=== PATIENT | female | born 1960 | race Caucasian/White ===

== ENCOUNTER 2016-07-09 18:10 | Emergency (ER) | payer OTHER ==
[~2016-07-09] VITALS: Ht 154.9 cm; Wt 73.5 kg
[~2016-07-09 18:10] MED LIST: PEN-VEE K,VEET500 MG PO
[2016-07-09] MEDS ORDERED: NORCO 5/3251 TABLET PO (19:15)
[2016-07-09] MEDS ORDERED: AMOXICILLIN500 M1 PO (19:15)
[2016-07-09 19:26] VITALS: BP 180/90
== END 2016-07-09 19:27 | disposition home or self-care (01) ==
LOC: EME 18:10
DX: S09.90XA Unspecified injury of head, initial encounter (principal); K08.89 Other specified disorders of teeth and supporting structures; I10 Essential (primary) hypertension; W22.09XA Striking against other stationary object, initial encounter; F17.200 Nicotine dependence, unspecified, uncomplicated
CPT/HCPCS: 99281; 99283

== ENCOUNTER 2016-07-12 08:53 | Emergency (ER) | payer OTHER ==
[~2016-07-12] VITALS: Ht 154.9 cm; Wt 73.8 kg
[~2016-07-12 08:53] MED LIST changes: +AMOXICILLIN500 M1 PO; +NORCO 5/3251 TABLET PO
[2016-07-12 12:17] VITALS: BP 169/76
== END 2016-07-12 12:19 | disposition home or self-care (01) ==
LOC: EME 08:53
DX: R51 Headache (principal); S09.90XS Unspecified injury of head, sequela; W22.09XS Striking against other stationary object, sequela; F17.200 Nicotine dependence, unspecified, uncomplicated; Z88.6 Allergy status to analgesic agent; Z88.5 Allergy status to narcotic agent; Z91.02 Food additives allergy status
CPT/HCPCS: 70450; 99281; 99285

== ENCOUNTER 2016-07-21 12:07 | Emergency (ER) | payer OTHER ==
[~2016-07-21] VITALS: Ht 154.9 cm; Wt 72.6 kg
[2016-07-21] MEDS ORDERED: VALIUM5 MG PO (13:05)
[2016-07-21] MEDS ORDERED: FIORICET,ESG1 TABLET PO (14:05)
[2016-07-21 14:14] VITALS: BP 177/80
== END 2016-07-21 14:18 | disposition home or self-care (01) ==
LOC: EME 12:07 → EXP 12:07
DX: F07.81 Postconcussional syndrome (principal); F17.200 Nicotine dependence, unspecified, uncomplicated
CPT/HCPCS: 70450; 99281; 99284; J1885

== ENCOUNTER 2017-07-04 02:27 | Emergency (ER) | payer OTHER ==
[~2017-07-04] VITALS: Ht 154.9 cm; Wt 73.7 kg
[~2017-07-04 02:27] MED LIST changes: +FIORICET,ESG1 TABLET PO; +VALIUM5 MG PO
[2017-07-04] MEDS ORDERED: BACTRIM,SEPT1 TABLET PO (03:58)
[2017-07-04 04:18] VITALS: BP 160/80
== END 2017-07-04 04:18 | disposition home or self-care (01) ==
LOC: EME 02:27
PROC: 0U9MXZZ Drainage of Vulva, External Approach (ICD-10-PCS; principal; 2017-07-04)
DX: N76.4 Abscess of vulva (principal); F32.9 Major depressive disorder, single episode, unspecified; F17.200 Nicotine dependence, unspecified, uncomplicated; Z90.49 Acquired absence of other specified parts of digestive tract; Z88.6 Allergy status to analgesic agent; Z88.5 Allergy status to narcotic agent; Z88.8 Allergy status to other drugs, medicaments and biological substances
CPT/HCPCS: 99281; 99284